=== PATIENT | female | born 1990 | race Caucasian/White ===

== ENCOUNTER → 2021-10-18 | Outpatient (CLI) | payer SELFPAY | LOC: LAB SHORT 13:20 | DX: Z32.01 Encounter for pregnancy test, result positive (principal); R30.0 Dysuria | CPT/HCPCS: 84703; 87077; 87086; 87186 ==

== ENCOUNTER → 2023-04-12 | Outpatient (CLI) | payer OTHER ==
[~2023-04-12] MED LIST: CYCL10 PO; DICY20 PO; FLUT.05NI
== END ==
LOC: LAB 19:16 → LAB SHORT 19:16
DX: N39.0 Urinary tract infection, site not specified (principal)
CPT/HCPCS: 87086